=== PATIENT | female | born 1940 | race Asian ===

== ENCOUNTER 2022-05-08 04:43 | Day surgery (SDC) | payer MEDICARE ==
[2022-05-04 11:57] VITALS: BMI 24.7
[2022-05-08 08:14] VITALS: TEMP 97.6
[2022-05-08 08:52] VITALS: BP 152/73; PULSE 71; RESP 13
== END 2022-05-08 09:30 | disposition home or self-care (01) ==
LOC: JASU-ENDO 04:43
PROVIDERS: ATTEND Student in an Organized Health Care Education/Training Program
PROC: 0DB78ZX Excision of Stomach, Pylorus, Via Natural or Artificial Opening Endoscopic, Diagnostic (ICD-10-PCS; 2022-05-08)
PROC: 0DB68ZX Excision of Stomach, Via Natural or Artificial Opening Endoscopic, Diagnostic (ICD-10-PCS; 2022-05-08)
PROC: 0DB38ZX Excision of Lower Esophagus, Via Natural or Artificial Opening Endoscopic, Diagnostic (ICD-10-PCS; 2022-05-08)
PROC: 0DB98ZX Excision of Duodenum, Via Natural or Artificial Opening Endoscopic, Diagnostic (ICD-10-PCS; principal; 2022-05-08 08:00)
DX: K29.50 Unspecified chronic gastritis without bleeding (principal); K21.00 Gastro-esophageal reflux disease with esophagitis, without bleeding
CPT/HCPCS: 88305-TC; 88342-TC

== ENCOUNTER 2023-07-29 16:00 | Inpatient (IN) | payer MEDICARE, OTHER ==
[2023-07-29 17:00] LABS: BASO % 0.1 % (0-2.0); EOS % 0.1 % (0-4.5); HEMATOCRIT 40.1 % (32.4-45.2); HEMOGLOBIN 13.7 GM/dL (10.7-15.3); LYMPH % 9.3 % (8-40); MCH 28.7 pg (25.7-33.7); MCHC 34.1 g/dl (32.0-36.0); MEAN CELL VOLUME 84.1 fl (80-96); MEAN PLT VOLUME 7.4 fl (7.5-11.1); MONO % 1.7 % (3.8-10.2); NEUT % 88.8 % (42.8-82.8); PLATELET COUNT 244 10^3/uL (134-434); RBC 4.77 M/mm3 (3.60-5.2); RDW 14.1 % (11.6-15.6); WHITE BLOOD COUNT 8.8 K/mm3 (4.0-10.0)
[2023-07-29 17:05] LABS: INR 1.08 (0.83-1.09); PROTHROMBIN TIME (PATIENT) 12.2 SEC (9.7-13.0)
[2023-07-29 17:16] LABS: CHLORIDE 102 mmol/L (98-107); POTASSIUM 4.2 mmol/L (3.5-5.1); SODIUM 137 mmol/L (136-145)
[2023-07-29 17:17] LABS: CALCIUM 9.1 mg/dL (8.5-10.1)
[2023-07-29 17:18] LABS: ALBUMIN 3.7 g/dl (3.4-5.0)
[2023-07-29 17:19] LABS: ANION GAP 8 mmol/L (4-13); BLOOD UREA NITROGEN 15.3 mg/dL (7-18); CO2 27 mmol/L (21-32); GLUCOSE,RANDOM 178 mg/dL (74-106)
[2023-07-29 17:21] LABS: CREATININE 0.8 mg/dL (0.55-1.3)
[2023-07-29 17:22] LABS: CHOLESTEROL 210 mg/dL (50-200); SGOT/AST 12 U/L (15-37); SGPT/ALT 22 U/L (13-61); TOT PROT 7.2 g/dl (6.4-8.2)
[2023-07-29 17:23] LABS: LDL CHOLESTEROL (ONLY SJRH) 129 mg/dL (5-100)
[2023-07-29 17:24] LABS: BILIRUBIN,TOTAL 0.2 mg/dL (0.2-1)
[2023-07-29 17:25] LABS: HDL CHOLESTEROL 61 mg/dL (40-60)
[2023-07-29 17:26] LABS: ALK PHOS 53 U/L (45-117)
[2023-07-29] MEDS ORDERED: FAMOTIDINE 20 MG/50 ML IVPB 20 MG/50 ML MG IVPB ONE (17:58)
[2023-07-29] MEDS: FAMOTIDINE 20 MG/50 ML IVPB 20 MG/50 ML MG IVPB ONE (18:04)
[2023-07-29] MEDS ORDERED: MELATONIN 5 MG TABLETS PO ONE (22:26)
[2023-07-29] MEDS ORDERED: LABETALOL HCL 5 MG/1 ML (100MG/20 ML VIAL) IVPUSH ONE (22:34)
[2023-07-29] MEDS: ACETAMINOPHEN 1000 MG/100 ML BAG IVPB ONE (22:57)
[2023-07-30] MEDS: ACETAMINOPHEN 325 MG TABLET (FP) PO PRN (05:51)
[2023-07-30 06:40] LABS: BASO % 0.1 % (0-2.0); EOS % 0.4 % (0-4.5); HEMATOCRIT 39.3 % (32.4-45.2); HEMOGLOBIN 13.1 GM/dL (10.7-15.3); LYMPH % 24.9 % (8-40); MCH 28.3 pg (25.7-33.7); MCHC 33.4 g/dl (32.0-36.0); MEAN CELL VOLUME 84.5 fl (80-96); MEAN PLT VOLUME 7.2 fl (7.5-11.1); MONO % 5.1 % (3.8-10.2); NEUT % 69.5 % (42.8-82.8); PLATELET COUNT 228 10^3/uL (134-434); RBC 4.65 M/mm3 (3.60-5.2); RDW 13.4 % (11.6-15.6); WHITE BLOOD COUNT 8.4 K/mm3 (4.0-10.0)
[2023-07-30 06:54] LABS: POTASSIUM 3.8 mmol/L (3.5-5.1)
[2023-07-30 07:06] LABS: CALCIUM 8.6 mg/dL (8.5-10.1)
[2023-07-30 07:07] LABS: ALBUMIN 3.4 g/dl (3.4-5.0); BLOOD UREA NITROGEN 11.7 mg/dL (7-18)
[2023-07-30 07:09] LABS: CREATININE 0.5 mg/dL (0.55-1.3)
[2023-07-30 07:11] LABS: BILIRUBIN,TOTAL 0.4 mg/dL (0.2-1); TOT PROT 6.6 g/dl (6.4-8.2)
[2023-07-30] MEDS ORDERED: VANCOMYCIN/WATER FOR INJ (PEG) 1,000 MG/200 ML BAG IVPB ONE (07:11)
[2023-07-30 08:24] VITALS: TEMP 97.8
[2023-07-30] MEDS: ESCITALOPRAM OXALATE 20 MG TABLET PO SCH (11:28)
[2023-07-30 13:11] VITALS: PULSE 78
[2023-07-30 13:56] LABS: URINE APPEARANCE CLEAR; URINE BILIRUBIN NEGATIVE (NEGATIVE); URINE COLOR YELLOW; URINE GLUCOSE (UA) NEGATIVE (NEGATIVE); URINE KETONE NEGATIVE (NEGATIVE); URINE LEUK ESTERASE NEGATIVE (NEGATIVE); URINE NITRITE NEGATIVE (NEGATIVE); URINE PROTEIN NEGATIVE (NEGATIVE); URINE UROBILINOGEN 0.2 mg/dL (0.2-1.0)
[2023-07-30 14:20] VITALS: BMI 24.9
[2023-07-30] MEDS: DOCUSATE SODIUM 100 MG CAPSULE (FP) PO SCH (14:27)
[2023-07-30] MEDS: MAG HYDROX/AL HYDROX/SIMETH 30 ML UNIT-DOSE CUP PO ONE (16:28)
[2023-07-30] MEDS: FAMOTIDINE 20 MG TABLET PO ONE (16:28)
[2023-07-30 16:32] VITALS: BP 128/67; RESP 25
[2023-07-30] MEDS ORDERED: SENNOSIDES 8.6MG TABLET (FP) PO SCH (22:00)
[2023-07-30] MEDS ORDERED: ATORVASTATIN CA 40 MG TABLET (FP) PO SCH (22:00)
== END 2023-07-30 18:23 | disposition short-term general hospital (02) | DRG 64 ==
LOC: JER 16:00 → JERBED 18:14 → J2W 21:54
PROVIDERS: ADMIT Internal Medicine; ATTEND Internal Medicine
DX: I62.9 Nontraumatic intracranial hemorrhage, unspecified (principal); G04.90 Encephalitis and encephalomyelitis, unspecified; G81.91 Hemiplegia, unspecified affecting right dominant side; I10 Essential (primary) hypertension; E11.9 Type 2 diabetes mellitus without complications; I25.10 Atherosclerotic heart disease of native coronary artery without angina pectoris; E78.5 Hyperlipidemia, unspecified; R29.6 Repeated falls; Z95.5 Presence of coronary angioplasty implant and graft; R29.711 NIHSS score 11
CPT/HCPCS: 0241U-QW; 36415; 70450-TC; 70546-TC; 70553-TC; 71045-TC-FY; 71260-TC; 74177-TC; 80053; 80061; 81003; 82550; 82962; 83036; 84439; 84443; 84484; 85025; 85610; 85730; 86850; 86900; 86901; 87040; 87086; 93005; 93010; 93306-TC; 93880-TC; 97116-GP; 97162-GP; 99285-25; J0131; Q9967